=== PATIENT | female | born 1995 ===

== ENCOUNTER 2017-08-27 21:42 | Emergency (ER) | payer BC ==
--- NOTE | 2017-08-27 21:46 | ED PDOC ---
"Arrival/HPI - General Time Seen by Provider: 08/27/17 21:44 Historian: Patient - History of Present Illness Narrative History of Present Illness (Text): 08/27/17 21:45 21 y/o female, no significant pmh, , LMP 07/28/2017, nkda, c/o suprapubic pain x 2 days. Pt. stated that her period is 2 days late, concerning she is , no vaginal bleeding or discharge, eating and drinking well, no night sweat, no rash, no numbness or tingling, no other medical or psychological complaints. Past Medical History - Provider Review Nursing Documentation Reviewed: Yes Family/Social History - Physician Review Nursing Documentation Reviewed: Yes Family/Social History: Unknown Family HX Allergies/Home Meds Allergies/Adverse Reactions: Allergies clindamycin [From Cleocin] Allergy (Verified 08/27/17 22:05) SHORTNESS OF BREATH diphenhydramine [From Benadryl] Allergy (Verified 08/27/17 22:05) SHORTNESS OF BREATH Penicillins Allergy (Verified 08/27/17 22:05) SHORTNESS OF BREATH Review of Systems - Review of Systems Constitutional: absent: Fatigue, Fevers Eyes: absent: Vision Changes ENT: absent: Hearing Changes Respiratory: absent: SOB, Cough Cardiovascular: absent: Chest Pain Gastrointestinal: Abdominal Pain. absent: Nausea, Vomiting Musculoskeletal: absent: Arthralgias, Back Pain Skin: absent: Rash, Pruritis Psychiatric: absent: Anxiety, Depression, Suicidal Ideation Physical Exam Vital Signs Temp Pulse Resp BP Pulse Ox 08/28/17 00:54 76 18 99/52 L 98 08/28/17 00:00 94 H 17 121/47 L 100 08/27/17 21:42 98.3 F 71 16 109/63 99 - Systems Exam Head: Present: Atraumatic, Normocephalic Pupils: Present: PERRL Extroacular Muscles: Present: EOMI Conjunctiva: Present: Normal Mouth: Present: Moist Mucous Membranes Neck: Present: Normal Range of Motion Respiratory/Chest: Present: Clear to Auscultation, Good Air Exchange. No: Respiratory Distress, Accessory Muscle Use Cardiovascular: Present: Regular Rate and Rhythm, Normal S1, S2. No: Murmurs Abdomen: Present: Normal Bowel Sounds. No: Tenderness, Distention, Peritoneal Signs, Rebound, Guarding Genitourinary/Pelvic Exam: Present: Normal External Genitalia, Cervical os Closed, Other (Female Senior It Assistant: KILN FIRER HELPERYURIDIA Lechuga). No: Vaginal Discharge, Vaginal Bleeding, Vaginal Lesions, Adenexal Tenderness, Adenexal Mass, Cervical Motion Tendernes, Odor Back: Present: Normal Inspection Upper Extremity: Present: Normal Inspection. No: Cyanosis, Edema Lower Extremity: Present: Normal Inspection. No: Edema Neurological: Present: GCS=15, Speech Normal, Motor Func Grossly Intact, Gait Normal, Memory Normal Skin: Present: Warm, Dry, Normal Color. No: Rashes Psychiatric: Present: Alert, Oriented x 3, Normal Insight, Normal Concentration Medical Decision Making ED Course and Treatment: 08/27/17 22:00 -urine hcg -urinalysis 08/27/17 22:31 -Urine hcg is positive. -Labs and sonogram ordered with tylenol. 08/28/17 01:04 -Labs are non-significant except potassium 3.4 (advised to drink more orange juice and eat more banana, pt. refused po potassium) -UA show UTI, macrobid ordered. -beta hcg 284 -type and screen: O+ -Pain resolved. -sonogram show Thickened endometrium, no intrauterine or ectopic gestation identified. Followup imaging and beta-hCG levels advised -I discussed with Dr. Alfaro, agreed this is too early to tell and out patient with obgyn follow up. -Discharge home with macrobid, tylenol, follow up with your own pmd and obgyn within 2 days for repeat beta hcg and outpatient sonogram follow up, return to the ER for any new or worsening signs or symptoms. - Lab Interpretations Lab Results: 08/27/17 22:45 08/27/17 22:45 Lab Results 08/27/17 23:46: Blood Type O POSITIVE, Antibody Screen Negative, BBK History Checked No verified bt 08/27/17 22:45: WBC 8.2, RBC 4.33, Hgb 13.5, Hct 38.1, MCV 88.0, MCH 31.2, MCHC 35.4, RDW 11.9, Plt Count 267, MPV 9.5, Gran % 55.6, Lymph % (Auto) 36.9 H, [place] % (Auto) 4.6, Eos % (Auto) 2.3, Baso % (Auto) 0.6, Gran # 4.57, Lymph # 3.0 , [place] # 0.4, Eos # 0.2, Baso # 0.05 08/27/17 22:45: Beta HCG, Quant 284.93 H 08/27/17 22:45: Sodium 137, Potassium 3.4 L, Chloride 106, Carbon Dioxide 22, Anion Gap 12, BUN 13, Creatinine 0.6 L, Est GFR ( Amer) > 60, Est GFR ( Non-Af Amer) > 60, Random Glucose 97, Calcium 9.0, Total Bilirubin 0.8, AST 23, ALT 27, Alkaline Phosphatase 65, Total Protein 7.3, Albumin 4.3, Globulin 3.0, Albumin/Globulin Ratio 1.4 08/27/17 22:19: Urine Color Yellow, Urine Appearance Sl cloudy, Urine pH 6.0, Ur Specific [place] >= 1.030, Urine Protein Negative, Urine Glucose (UA) Negative, Urine Ketones Negative, Urine Blood Negative, Urine Nitrate Positive H , Urine Bilirubin Negative, Urine Urobilinogen 0.2, Ur Leukocyte Esterase Negative, Urine RBC Negative, Urine WBC 2 - 5, Ur Epithelial Cells 4 - 5, Urine Bacteria Many I have reviewed the lab results: Yes Interpretation: Abnormal lab values (+UTI, Beta hcg 284) - RAD Interpretation Radiology Orders: 08/27/17 22:29 OB TRANSVAGINAL [US] Stat 21 years old, female; Pain; complicated by abdominal or pelvic pain; Lower; First trimester; Gestational age or lmp: 07/29/2017; Additional info: Pelvic cramp, + test TECHNIQUE: Real-time transabdominal obstetrical ultrasound of the maternal pelvis and a first trimester with image documentation. COMPARISON: There are no prior studies for comparison. FINDINGS: Uterus: Uterus is anteflexed. Uterus measures 8.4 x 4.4 x 8.5 cm. endometrium measures approximately 5 mm in width. Ovaries: Neither ovary could be identified Free fluid: There is no free fluid. The Bladder: Urinary bladder is almost completely empty which limits transabdominal imaging. IMPRESSION: Limited transabdominal evaluation due to incomplete bladder distention EXAM: US , Transvaginal EXAM DATE/TIME: 08/27/2017 10:29 PM CLINICAL HISTORY: DIXIE LEY | Final Radiology Report CONFIDENTIALITY STATEMENT 21 years old, female; Pain; complicated by abdominal or pelvic pain; Lower; First trimester; Gestational age or lmp: 07/29/2017; Additional info: Pelvic cramp, + test TECHNIQUE: Real-time transvaginal obstetrical ultrasound of the maternal pelvis and a first trimester with image documentation. Transvaginal imaging was used for better evaluation of the fetus and adnexa. COMPARISON: There are no prior studies for comparison. FINDINGS: Uterus: Endometrium measures approximately 22.4 mm in width. Cervix is closed. Ovaries: Right ovary measures approximately 3.4 x 2.4 x 2.7 cm. Left ovary measures 3.8 x 3.1 x 3.5 cm. There are multiple small follicles. There is intraovarian blood flow. Free fluid: There is no free fluid.. IMPRESSION: Thickened endometrium, no intrauterine or ectopic gestation identified Followup imaging and beta-hCG levels advised Thank you for allowing us to participate in the care of your patient. 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 Disposition/Present on Arrival - Present on Arrival Any Indicators Present on Arrival: No History of DVT/PE: No History of Uncontrolled Diabetes: No Urinary Catheter: No History of Decub. Ulcer: No - Disposition Have Diagnosis and Disposition been Completed?: Yes Diagnosis: Pelvic pain affecting , UTI (urinary tract infection) Disposition: HOME/ ROUTINE Disposition Time: 00:45 Patient Plan: Discharge Patient Problems: Current Active Problems Problem Status Onset Pelvic pain affecting Acute UTI (urinary tract infection) Acute Condition: IMPROVED Additional Instructions: -Discharge home with macrobid, tylenol, eat more banana and drink more orange juice, follow up with your own pmd and obgyn within 2 days for repeat beta hcg and outpatient sonogram follow up, return to the ER for any new or worsening signs or symptoms. Prescriptions: Acetaminophen [Tylenol 325mg tab] 2 tab PO QID PRN #30 tab PRN Reason: Other Nitrofurantoin Macrocrystals [Macrobid] 100 mg PO BID #14 cap Referrals: Reny Page, [Primary Care Provider] - Follow up with primary Jeff Brown MD [Staff Provider] - [facility] - Follow up with primary Forms: WORK NOTE"
[2017-08-27 22:05] VITALS: TEMP 98.3
[2017-08-27 22:44] LABS: URINE APPEARANCE SL CLOUDY (CLEAR); URINE BILIRUBIN NEGATIVE (NEGATIVE); URINE BLOOD NEGATIVE (NEGATIVE); URINE COLOR YELLOW (YELLOW); URINE GLUCOSE (UA) NEGATIVE (NEGATIVE); URINE KETONE NEGATIVE (NEGATIVE); URINE LEUKOCYTE ESTERASE NEGATIVE Leu/uL (NEGATIVE); URINE PROTEIN NEGATIVE mg/dL (<30 mg/dL); URINE UROBILINOGEN 0.2 E.U./dL (<1 E.U./dL)
[2017-08-27 23:02] LABS: BASO # 0.05 K/mm3 (0.0-2.0); BASO % 0.6 % (0.0-3.0); EOS # 0.2 (0.0-0.7); EOS % 2.3 % (1.5-5.0); GRAN # 4.57 (1.4-6.5); GRAN % 55.6 % (50.0-68.0); HEMATOCRIT 38.1 % (36.0-48.0); LYMPH % 36.9 % (22.0-35.0); MEAN CORPUSCULAR HEMOGLOBIN 31.2 pg (25.0-35.0); MEAN CORPUSCULAR HGB CONC 35.4 g/dl (31.0-37.0); MEAN PLATELET VOLUME 9.5 fl (7.0-11.0); MONO # 0.4 (0.1-0.6); MONO % 4.6 % (1.0-6.0); RED CELL DISTRIBUTION WIDTH 11.9 % (11.5-14.5); WHITE BLOOD COUNT 8.2 10^3/ul (4.5-11.0)
[2017-08-27 23:09] LABS: URINE BACTERIA MANY (NEG); URINE RBC NEGATIVE /hpf (0-2)
[2017-08-27 23:21] LABS: ALB/GLOB RATIO 1.4 (1.1-1.8); ALKALINE PHOSPHATASE 65 U/L (38-126); ALT/SGPT 27 U/L (7-56); AST/SGOT 23 U/L (14-36); BILIRUBIN,TOTAL 0.8 mg/dL (0.2-1.3); BLOOD UREA NITROGEN 13 mg/dL (7-21); CARBON DIOXIDE 22 mmol/L (21-33); CHLORIDE 106 mmol/L (98-107); GFR AFRICAN-AMERICAN > 60; GLUCOSE,RANDOM 97 mg/dL (70-110); POTASSIUM 3.4 mmol/L (3.6-5.0); SODIUM 137 mmol/L (132-148); TOTAL PROTEIN 7.3 g/dL (5.8-8.3)
--- NOTE | 2017-08-28 00:26 | US ---
EXAM: US First Trimester, Transabdominal CLINICAL HISTORY: 21 years old, female; Pain; complicated by abdominal or pelvic pain; Lower; First trimester; Gestational age or lmp: 07/29/2017; Additional info: Pelvic cramp, + test TECHNIQUE: Real-time transabdominal obstetrical ultrasound of the maternal pelvis and a first trimester with image documentation. COMPARISON: There are no prior studies for comparison. FINDINGS: Uterus: Uterus is anteflexed. Uterus measures 8.4 x 4.4 x 8.5 cm. endometrium measures approximately 5 mm in width. Ovaries: Neither ovary could be identified Free fluid: There is no free fluid. The Bladder: Urinary bladder is almost completely empty which limits transabdominal imaging. IMPRESSION: Limited transabdominal evaluation due to incomplete bladder distention EXAM: US , Transvaginal EXAM DATE/TIME: 08/27/2017 10:29 PM CLINICAL HISTORY: 21 years old, female; Pain; complicated by abdominal or pelvic pain; Lower; First trimester; Gestational age or lmp: 07/29/2017; Additional info: Pelvic cramp, + test TECHNIQUE: Real-time transvaginal obstetrical ultrasound of the maternal pelvis and a first trimester with image documentation. Transvaginal imaging was used for better evaluation of the fetus and adnexa. COMPARISON: There are no prior studies for comparison. FINDINGS: Uterus: Endometrium measures approximately 22.4 mm in width. Cervix is closed. Ovaries: Right ovary measures approximately 3.4 x 2.4 x 2.7 cm. Left ovary measures 3.8 x 3.1 x 3.5 cm. There are multiple small follicles. There is intraovarian blood flow. Free fluid: There is no free fluid. IMPRESSION: Thickened endometrium, no intrauterine or ectopic gestation identified Followup imaging and beta-hCG levels advised
[2017-08-28 00:56] VITALS: BP 99/52; PULSE 76; RESP 18; O2SAT 98
== END 2017-08-28 01:08 | disposition home or self-care (01) ==
LOC: ED 21:42
DX: O23.40 Unspecified infection of urinary tract in pregnancy, unspecified trimester (principal); O26.899 Other specified pregnancy related conditions, unspecified trimester; R10.2 Pelvic and perineal pain

== ENCOUNTER 2017-08-30 12:49 | Emergency (ER) | payer BC ==
[2017-08-30 13:11] VITALS: BP 90/62; PULSE 81; RESP 18; TEMP 98.3; O2SAT 100
--- NOTE | 2017-08-30 14:12 | ED PDOC ---
Arrival/HPI - General Chief Complaint: Female Genitourinary Time Seen by Provider: 08/30/17 13:09 Historian: Patient - History of Present Illness Narrative History of Present Illness (Text): 08/30/17 14:00 A 21 year old female who is 002 estimated LMP 07/28/17 making the patient approximately 4 weeks and 3 days gravid. The patient's most recent Emergency department visit was on 08/27/17 for suprapubic pain for 2 days and at the time the patient as found to be ultrasound negative for IUP and her beta was 284. Now the patient presents to the Emergency department on "beta HCG list" for serial beta HCG level check and ultrasound. She notes she still continues to have mild nausea and midline suprapubic pain. The patient denies fever, vaginal bleeding, chills, chest pain, or any other complaints at this time. Off note the patient was diagnosed with bacterium and admits to not filling her prescriptions. Time/Duration: Other Symptom Course: Other Quality: Cramping Context: Home Past Medical History - Provider Review Nursing Documentation Reviewed: Yes - Infectious Disease Hx of Infectious Diseases: None - Psychiatric Hx Substance Use: No - Surgical History Hx Section: Yes Family/Social History - Physician Review Nursing Documentation Reviewed: Yes Family/Social History: No Known Family HX Smoking Status: Never Smoked Hx Alcohol Use: No Hx Substance Use: No Allergies/Home Meds Allergies/Adverse Reactions: Allergies clindamycin [From Cleocin] Allergy (Verified 08/30/17 13:11) SHORTNESS OF BREATH diphenhydramine [From Benadryl] Allergy (Verified 08/30/17 13:11) SHORTNESS OF BREATH Penicillins Allergy (Verified 08/30/17 13:11) SHORTNESS OF BREATH Review of Systems - Physician Review All systems were reviewed & negative as marked: Yes - Review of Systems Constitutional: absent: Fevers Cardiovascular: absent: Chest Pain Gastrointestinal: Abdominal Pain, Nausea Genitourinary Female: absent: Vaginal Bleeding Physical Exam Vital Signs Reviewed: Yes Vital Signs Temp Pulse Resp BP Pulse Ox 08/30/17 13:09 98.3 F 81 18 90/62 L 100 Temperature: Afebrile Blood Pressure: Hypotensive Pulse: Regular Respiratory Rate: Normal Appearance: Positive for: Well-Appearing, Non-Toxic, Comfortable Pain Distress: None Mental Status: Positive for: Alert and Oriented X 3 - Systems Exam Head: Present: Atraumatic, Normocephalic Pupils: Present: PERRL Extroacular Muscles: Present: EOMI Conjunctiva: Present: Normal Mouth: Present: Moist Mucous Membranes Neck: Present: Normal Range of Motion Respiratory/Chest: Present: Clear to Auscultation, Good Air Exchange. No: Respiratory Distress, Accessory Muscle Use Cardiovascular: Present: Regular Rate and Rhythm, Normal S1, S2. No: Murmurs Abdomen: Present: Tenderness (midline suprapubic trans abdominal tenderness ), Normal Bowel Sounds. No: Distention, Peritoneal Signs Genitourinary/Pelvic Exam: Present: Normal External Genitalia, Cervical os Closed, Other (midline likely uterine tenderness). No: Vaginal Bleeding, Adenexal Tenderness Back: Present: Normal Inspection Upper Extremity: Present: Normal Inspection. No: Cyanosis, Edema Lower Extremity: Present: Normal Inspection. No: Edema Neurological: Present: GCS=15, CN II-XII Intact, Speech Normal Skin: Present: Warm, Dry, Normal Color. No: Rashes Psychiatric: Present: Alert, Oriented x 3, Normal Insight, Normal Concentration Medical Decision Making ED Course and Treatment: 08/30/17 14:23 Impression: A 21 year old female with abdominal pain. Differential Diagnosis included but are not limited to: Plan: -- Transvaginal Ultrasound -- Reassess and disposition Progress Notes: - Lab Interpretations Lab Results: Lab Results 08/30/17 14:30: Beta HCG, Quant 1020.10 H - RAD Interpretation Radiology Orders: 08/30/17 13:15 TRANSVAGINAL [US] Stat - Scribe Statement The provider has reviewed the documentation as recorded by the Abida Pang Provider Scribe Attestation: All medical record entries made by the Scribe were at my direction and personally dictated by me. I have reviewed the chart and agree that the record accurately reflects my personal performance of the history, physical exam, medical decision making, and the department course for this patient. I have also personally directed, reviewed, and agree with the discharge instructions and disposition. Disposition/Present on Arrival - Present on Arrival Any Indicators Present on Arrival: No History of DVT/PE: No History of Uncontrolled Diabetes: No Urinary Catheter: No History of Decub. Ulcer: No History Surgical Site Infection Following: None - Disposition Have Diagnosis and Disposition been Completed?: Yes Diagnosis: Pelvic pain affecting in first trimester, antepartum Disposition: HOME/ ROUTINE Disposition Time: 16:40 Patient Plan: Discharge Condition: GOOD Discharge Instructions (ExitCare): Ectopic (ED), Threatened Miscarriage (ED) Print Language: URDU Additional Instructions: Your bHCG hormone level is doubling appropiately from 243 on 08/27 to no w 1020 which bodes well and is commensurate with a viable . However your sonogram has still not identified an intrauterine , which would still mandate you continue to return in one of 2 days to check hormone again and in another week to check againfor presence of intrauetrine . Return urgently if you experience any vaginal bleeding or lighteheadedness. TAKE YOUR ANTIBIOTICS PRESCRIBED . Referrals: PCP,NO [Primary Care Provider] - Follow up with primary Forms: DWNLD (Norwegian)
--- NOTE | 2017-08-30 14:22 | US ---
Indication: IUP check Comparison: Ob transvaginal ultrasound performed 08/27/17 Technique: Transvaginal pelvic ultrasound Findings: The uterus measures approximately 9.1 x 5.7 x 7.2 cm. Anteverted. Cervix length measures approximately 3.6 cm. The endometrium measures approximately 1 cm in diameter. No evidence of intrauterine gestational sac. The right ovary measures 3.0 x 2.3 x 2.6 cm. The left ovary measures 3.0 x 2.4 x 2.7 cm and contains 1.5 x 1.1 x 1.6 cm complex appearing cyst. Blood flow was demonstrated to both ovaries. Impression: No evidence of intrauterine gestational sac. If indeed the patient is based on serum beta HCG values, the sonographic findings represent either: Very early IUP; embryonic demise; ectopic gestation. Follow-up with serial quantitative serum beta HCG measurements and post OBGYN follow-up as clinically indicated, since ectopic gestation cannot be excluded based only on sonographic findings. 1.6 cm complex appearing left ovarian cyst. Recommend attention on short-term follow-up.
== END 2017-08-30 17:25 | disposition home or self-care (01) ==
LOC: ED 12:49
DX: O26.891 Other specified pregnancy related conditions, first trimester (principal); R10.2 Pelvic and perineal pain; Z3A.00 Weeks of gestation of pregnancy not specified

== ENCOUNTER 2017-09-04 20:12 | Emergency (ER) | payer BC ==
[2017-09-04 20:41] VITALS: BP 98/63; PULSE 78; RESP 18; TEMP 99.1; O2SAT 98
--- NOTE | 2017-09-04 21:21 | ED PDOC ---
Arrival/HPI - General Chief Complaint: Female Genitourinary Time Seen by Provider: 09/04/17 20:30 Historian: Patient - History of Present Illness Narrative History of Present Illness (Text): 09/04/17 21:00 Heather Darby is a 21 year old female who presents to the emergency department for follow-up beta HCG levels. Patient notes that her last menstrual cycle was on 07/29/17. Patient states that she had been seen previously in the emergency room and was found to be . In Transvaginal Ultrasound at the time, no IUP was noted. Subsequent visit shows increase in Beta HCG, consistent with advancing . TV ultrasound noted, no IUP noted. Patient denies any abdominal pain, nausea, vomiting, vaginal bleeding, urinary symptoms, or any other complaints at this time. Patient with no care to date. Time/Duration: Other (Follow-up beta HCG-levels) Symptom Onset: Other (None) Modifying Factors (Text): none Associated Symptoms (Text): none Past Medical History - Provider Review Nursing Documentation Reviewed: Yes - Infectious Disease Hx of Infectious Diseases: None - Cardiac Hx Cardiac Disorders: No - Pulmonary Hx Respiratory Disorders: No - Neurological Hx Neurological Disorder: No - HEENT Hx HEENT Disorder: No - Renal Hx Renal Disorder: No - Endocrine/Metabolic Hx Endocrine Disorders: No - Hematological/Oncological Hx Blood Disorders: No - Integumentary Hx Dermatological Disorder: No - Musculoskeletal/Rheumatological Hx Musculoskeletal Disorders: No - Gastrointestinal Hx Gastrointestinal Disorders: No - Genitourinary/Gynecological Hx Genitourinary Disorders: Yes Hx Urinary Tract Infection: Yes Other/Comment: THREATENED MISSCARRIAGE, ECTOPIC - Psychiatric Hx Psychophysiologic Disorder: No Hx Substance Use: No - Surgical History Hx Section: Yes Family/Social History - Physician Review Nursing Documentation Reviewed: Yes Family/Social History: No Known Family HX Smoking Status: Never Smoked Hx Alcohol Use: No Hx Substance Use: No Allergies/Home Meds Allergies/Adverse Reactions: Allergies clindamycin [From Cleocin] Allergy (Verified 09/04/17 20:30) SHORTNESS OF BREATH diphenhydramine [From Benadryl] Allergy (Verified 09/04/17 20:30) SHORTNESS OF BREATH Penicillins Allergy (Verified 09/04/17 20:30) SHORTNESS OF BREATH Home Medications: Home Meds Medication Instructions Recorded Confirmed No Known Home Med 09/04/17 09/04/17 Review of Systems - Physician Review All systems were reviewed & negative as marked: Yes - Review of Systems Constitutional: absent: Fevers, Night Sweats Eyes: absent: Vision Changes ENT: absent: Hearing Changes Respiratory: absent: SOB, Cough Cardiovascular: absent: Chest Pain Gastrointestinal: absent: Abdominal Pain Genitourinary Female: absent: Dysuria, Frequency Musculoskeletal: absent: Arthralgias, Back Pain Skin: absent: Rash, Pruritis Neurological: absent: Headache, Dizziness Endocrine: absent: Diaphoresis, Polyuria Hemo/Lymphatic: absent: Adenopathy Psychiatric: absent: Depression Physical Exam Vital Signs Temp Pulse Resp BP Pulse Ox 09/04/17 20:33 99.1 F 78 18 98/63 L 98 Temperature: Afebrile Blood Pressure: Hypotensive Pulse: Regular Respiratory Rate: Normal Appearance: Positive for: Well-Appearing, Non-Toxic, Comfortable Pain Distress: None Mental Status: Positive for: Alert and Oriented X 3 - Systems Exam Head: Present: Atraumatic, Normocephalic Pupils: Present: PERRL Extroacular Muscles: Present: EOMI Conjunctiva: Present: Normal Mouth: Present: Moist Mucous Membranes Neck: Present: Normal Range of Motion Respiratory/Chest: Present: Clear to Auscultation, Good Air Exchange. No: Respiratory Distress, Accessory Muscle Use Cardiovascular: Present: Regular Rate and Rhythm, Normal S1, S2. No: Murmurs Abdomen: Present: Normal Bowel Sounds. No: Tenderness, Distention, Peritoneal Signs Back: Present: Normal Inspection Upper Extremity: Present: Normal Inspection. No: Cyanosis, Edema Lower Extremity: Present: Normal Inspection. No: Edema Neurological: Present: GCS=15, CN II-XII Intact, Speech Normal Skin: Present: Warm, Dry, Normal Color. No: Rashes Psychiatric: Present: Alert, Oriented x 3, Normal Insight, Normal Concentration Medical Decision Making ED Course and Treatment: 09/04/17 21:24 Impression: 21 year old female presents to the emergency department for follow-up Beta HCG levels. Plan: -- Transvaginal Ultrasound -- Labs -- Reassess and disposition Prior Visits: Notes and results from previous visits were reviewed. Patient was last seen on 08/30/17 for serial beta HCG level check and ultrasound. Patient was discharged home. Progress Notes: - Lab Interpretations Lab Results: 09/04/17 21:20 09/04/17 21:20 Lab Results 09/04/17 21:20: Beta HCG, Quant 03909.00 H 09/04/17 21:20: WBC 9.3, RBC 4.27, Hgb 13.4, Hct 38.0, MCV 89.0, MCH 31.4, MCHC 35.3, RDW 11.9, Plt Count 283, MPV 9.6 09/04/17 21:20: Sodium 138, Potassium 3.5 L, Chloride 105, Carbon Dioxide 23, Anion Gap 15, BUN 15, Creatinine 0.7, Est GFR ( Amer) > 60, Est GFR (Non- Af Amer) > 60, Random Glucose 86, Calcium 9.1, Total Bilirubin 0.6, AST 21, ALT 28, Alkaline Phosphatase 62, Total Protein 7.1, Albumin 4.2, Globulin 2.9, Albumin/Globulin Ratio 1.5 I have reviewed the lab results: Yes - RAD Interpretation Radiology Orders: 09/04/17 21:08 OB TRANSVAGINAL [US] Stat - Scribe Statement The provider has reviewed the documentation as recorded by the Scribe Emi Mabry All medical record entries made by the Scribe were at my direction and personally dictated by me. I have reviewed the chart and agree that the record accurately reflects my personal performance of the history, physical exam, medical decision making, and the department course for this patient. I have also personally directed, reviewed, and agree with the discharge instructions and disposition. Disposition/Present on Arrival - Present on Arrival Any Indicators Present on Arrival: No History of DVT/PE: No History of Uncontrolled Diabetes: No Urinary Catheter: No History of Decub. Ulcer: No History Surgical Site Infection Following: None - Disposition Have Diagnosis and Disposition been Completed?: Yes Diagnosis: Early stage of Disposition: HOME/ ROUTINE Disposition Time: 00:55 Patient Plan: Discharge Patient Problems: Current Active Problems Problem Status Onset Early stage of Acute Condition: STABLE Additional Instructions: Must follow up with your lap maker this week/If onset of any vaginal bleeding /abdominal pains then return to the emergency room Referrals: Domenico Horner MD [Staff Provider] - Follow up with primary Forms: YaBe[employer] (Frisian)
[2017-09-04 21:59] LABS: MEAN CORPUSCULAR HEMOGLOBIN 31.4 pg (25.0-35.0); MEAN CORPUSCULAR HGB CONC 35.3 g/dl (31.0-37.0); MEAN PLATELET VOLUME 9.6 fl (7.0-11.0); RED CELL DISTRIBUTION WIDTH 11.9 % (11.5-14.5); WHITE BLOOD COUNT 9.3 10^3/ul (4.5-11.0)
[2017-09-04 22:18] LABS: ALB/GLOB RATIO 1.5 (1.1-1.8); ALKALINE PHOSPHATASE 62 U/L (38-126); ALT/SGPT 28 U/L (7-56); AST/SGOT 21 U/L (14-36); BILIRUBIN,TOTAL 0.6 mg/dL (0.2-1.3); BLOOD UREA NITROGEN 15 mg/dL (7-21); CALCIUM 9.1 mg/dL (8.4-10.5); CARBON DIOXIDE 23 mmol/L (21-33); CHLORIDE 105 mmol/L (98-107); GFR AFRICAN-AMERICAN > 60; GLUCOSE,RANDOM 86 mg/dL (70-110); POTASSIUM 3.5 mmol/L (3.6-5.0); SODIUM 138 mmol/L (132-148); TOTAL PROTEIN 7.1 g/dL (5.8-8.3)
--- NOTE | 2017-09-05 00:32 | US ---
EXAM: US First Trimester, Transabdominal CLINICAL HISTORY: 21 years old, female; Pain; Other: Pelvic pain; Gestational age or lmp: 07/29/17; ; Additional info: Early TECHNIQUE: Real-time transabdominal obstetrical ultrasound of the maternal pelvis and a first trimester with image documentation. COMPARISON: US - TRANSVAGINAL 2017-08-30 13:48 FINDINGS: Gestation: Gestational sac. Yolk sac. No pole. Mean sac diameter of 0.76 cm, out of range. Uterus/cervix: No subchorionic hemorrhage. No cervical dilatation or effacement. Ovaries: RIGHT ovary: Normal. LEFT ovary: 1.9 x 1.3 x 1.5 septated hypoechoic lesion. No adnexal masses. Free fluid: No significant free fluid. IMPRESSION: 1. Intrauterine , of uncertain viability. Recommend followup. 2. Probable complex LEFT ovarian cyst. Suggest followup. EXAM: US , Transvaginal CLINICAL HISTORY: 21 years old, female; Pain; Other: Pelvic pain; Gestational age or lmp: 07/29/17; ; Additional info: Early TECHNIQUE: Real-time transvaginal obstetrical ultrasound of the maternal pelvis and a first trimester with image documentation. Transvaginal imaging was used for better evaluation of the fetus and adnexa. COMPARISON: US - TRANSVAGINAL 2017-08-30 13:48 FINDINGS: Gestation: Gestational sac. Yolk sac. No pole. Mean sac diameter of 0.76 cm, out of range. Uterus/cervix: No subchorionic hemorrhage. No cervical dilatation or effacement. Ovaries: RIGHT ovary: Normal. LEFT ovary: 1.9 x 1.3 x 1.5 septated hypoechoic lesion. No adnexal masses. Free fluid: No significant free fluid.
== END 2017-09-05 01:27 | disposition home or self-care (01) ==
LOC: ED 20:12
DX: Z34.91 Encounter for supervision of normal pregnancy, unspecified, first trimester (principal)